=== PATIENT | male | born 1990 | race Hispanic/Latino ===

== ENCOUNTER 2019-07-26 20:14 | Emergency (ER) | payer SELFPAY ==
[~2019-07-26] VITALS: Ht 157.5 cm; Wt 60.0 kg
[2019-07-26] MEDS ORDERED: LOTRISONE CREAM15 GM EX (20:56)
[2019-07-26 21:05] VITALS: BP 112/60
== END 2019-07-26 21:05 | disposition home or self-care (01) | DRG 607 ==
LOC: ED 20:14
DX: B35.6 Tinea cruris (principal)